=== PATIENT | male | born 1930 | race Caucasian/White ===

== ENCOUNTER 2017-06-07 18:18 | Emergency (ER) | payer OTHER ==
[~2017-06-07] VITALS: Ht 165.1 cm; Wt 50.0 kg
[~2017-06-07 18:18] MED LIST: HUM100IN4 SQ
[2017-06-07] MEDS ORDERED: morphine 4 MG/ML VIAL IV STA (18:27)
[2017-06-07] MEDS ORDERED: ONDANSETRON 4 MG INJ IV STA (18:27)
[2017-06-07] MEDS ORDERED: SOD CHLORIDE 0.9% 1,000 ML IV STA (18:27)
[2017-06-07 18:39] VITALS: Ht 165.1 cm; Wt 50.0 kg
[2017-06-07 19:13] LABS: BASOPHILS % 0.4 % (0.0-2.0); EOSINOPHILS % 0.4 % (0.0-7.0); LYMPHOCYTES # 0.9 10^3/ul (0.8-2.9); MEAN CORPUSCULAR HEMOGLOBIN 27.8 pg (29.0-33.0); MEAN CORPUSCULAR HGB CONC 31.6 g/dl (32.0-37.0); MEAN PLATELET VOLUME 9.2 fl (7.4-10.4); MONOCYTE # 0.6 10^3/ul (0.3-0.9); NEUTROPHIL # 6.5 10^3/ul (1.6-7.5); NEUTROPHILS % 80.8 % (39.0-77.0); PLATELET COUNT 256 10^3/UL (140-415); RED BLOOD COUNT 4.32 10^6/ul (4.70-6.10); RED CELL DISTRIBUTION WIDTH 15.1 % (11.5-14.5)
--- NOTE | 2017-06-07 19:23 | RADRPT ---
PROCEDURE: XR Chest. CLINICAL INDICATION: Abdominal pain. TECHNIQUE: Single frontal view. COMPARISON: . FINDINGS: There is mild atelectasis at the lung bases. The lungs are otherwise clear. The heart size is normal. There is calcification in the aorta consistent with atherosclerosis. There are new sternal wires. There are small bilateral pleural effusions. There is no pneumothorax. IMPRESSION: 1. Mild atelectasis at the lung bases. 2. Atherosclerosis. 3. New sternal wires. 4. Small bilateral pleural effusions. RPTAT: QQ .Daniel Noriega MD, Date Time Electronically viewed and signed by .Daniel Noriega MD, on 06/07/2017 19:22 .R/
[2017-06-07 19:35] LABS: ALANINE AMINOTRANSFERASE 31 IU/L (13-69); ALBUMIN 3.6 g/dl (3.3-4.9); ALKALINE PHOSPHATASE 138 IU/L (42-121); ANION GAP 13 (8-16); ASPARTATE AMINO TRANSFERASE 22 IU/L (15-46); BILIRUBIN,INDIRECT 0.5 mg/dl (0-1.1); BILIRUBIN,TOTAL 0.5 mg/dl (0.2-1.3); BLOOD UREA NITROGEN 13 mg/dl (7-20); CALCIUM 9.5 mg/dl (8.4-10.2); CARBON DIOXIDE 28 mmol/L (21-31); CHLORIDE 95 mmol/L (97-110); CREATININE 0.78 mg/dl (0.61-1.24); GLUCOSE 100 mg/dl (70-220); POTASSIUM 4.4 mmol/L (3.5-5.1); SODIUM 132 mmol/L (135-144); TOTAL PROTEIN 7.2 g/dl (6.1-8.1)
[2017-06-07 19:46] LABS: TROPONIN-I < 0.012 ng/ml (0.00-0.12)
[2017-06-07] MEDS ORDERED: HYDR2TAB3 PO (20:00)
[2017-06-07] MEDS ORDERED: FAMO20TA18 PO (20:00)
[2017-06-07] MEDS ORDERED: ONDA4TAB95 PO (20:01)
[2017-06-07] MEDS ORDERED: LACT10SO5 PO (20:02)
[2017-06-07] MEDS ORDERED: ATOR40TA68 PO (20:02)
[2017-06-07 20:29] LABS: INR 1.04; PARTIAL THROMBOPLASTIN TIME 30.9 Sec (25.0-35.0); PROTIME 13.6 Sec (12.2-14.2); PT RATIO 1.1
--- NOTE | 2017-06-07 20:35 | RADRPT ---
PROCEDURE: CT Abdomen and Pelvis without contrast. CLINICAL INDICATION: Abdominal pain TECHNIQUE: CT scan of the abdomen and pelvis without contrast was performed on a multidetector hig h-resolution CT scanner. The patient was scanned without intravenous contrast. Coronal and sagittal reformatted images were obtained from the axial source images. Images were reviewed on a high-resol [employer] PACS workstation. The total exam CTDI equals 8.81 mGy and the total exam DLP equals 455.83 mGy -cm. One or more the following dose reduction techniques were utilized: Automated exposure control, adjus tment of the mA and / or kV according to patient's size, or use of iterative reconstruction techniqu e. COMPARISON: None. FINDINGS: Small to moderate right pleural effusion with right lower lobe partial atelectasis. Small partially loculated left hydropneumothorax with left lower lobe and lingular partial atelectasis. No pneumoper itoneum is seen. Calcification in thoracoabdominal aorta. Small amount of ascites. Minimal calcifica tion at dome of liver could be vascular. No abnormality the gallbladder is seen. No biliary dilatati on is seen. Calcification in hepatic, splenic, bilateral renal and bilateral iliac arteries as well as inferior mesenteric artery. No abdominal aortic aneurysm is seen. Minimal thin linear peripheral splenic calcification. Arterial calcification in splenic hilar region. Arterial calcification in autumn ateral renal hilar regions. 6 mm likely hyperattenuating cyst in the mid right kidney. No imaging fo llow-up of this is recommended. No abnormality of the pancreas or adrenals is seen. Mild to moderat e enlargement of prostate with impression on posterior inferior bladder. Femoral arterial calcification is seen. Moderate stool in rectum. Appearance of mild diffuse rectal wall thickening w hich may be secondary to chronic constipation. There is no evidence of acute appendicitis seen. No d ilated small bowel loops are seen. No enlarged lymph nodes are seen in the abdomen or pelvis. Sterna l wires. Degenerative changes in thoracolumbar spine, sacroiliac joints and hips. 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 IMPRESSION: Small to moderate right pleural effusion with right lower lobe partial atelectasis. Small partially loculated left hydropneumothorax with left lower lobe and lingular partial atelectasis. The pneumoth orax is estimated be approximately 15%. Atherosclerosis. Very small amount of ascites. Mild to moder ate enlargement of prostate with impression on posterior inferior bladder. Moderate stool in the rec maria elena. Mild diffuse rectal wall thickening which may be secondary to chronic constipation. Critical re sult discussed with Dr. Garcia at 08:32 p.m. on 06/07/2017. RPTAT: HJES .Arnulfo Rosenthal MD, MD Date Time Electronically viewed and signed by .Arnulfo Rosenthal MD, on 06/07/2017 20:35 .S/
--- NOTE | 2017-06-07 22:39 | ERA ---
ER Documentation Chief Complaint Date/Time DATE: 06/07/17 TIME: 22:37 Chief Complaint c/o abd pain x months. [facility] pt. HPI Patient is a 87-year-old male who presents with abdominal pain and vomiting. The patient was brought in by ambulance. He has a history of abdominal pain over the past few months since November 2016. The pain is been constant. He denies vomiting or diarrhea at this time. He denies fevers. He tried pain pills. He is very emaciated. His primary doctor is at [facility]. Upon review of old medical records the patient one previous visit to the ER in June 2015. ROS All systems reviewed and are negative except as per history of present illness. Medications Home Meds Reported Medications Atorvastatin* (Atorvastatin*) 40 Mg Tablet, 40 MG PO QHS, #30 TAB 06/07/17 Lactulose* (Lactulose*) 10 Gm/15 Ml Solution, 30 ML PO BID for NEEDED, ML 06/07/17 Ondansetron Hcl* (Ondansetron Hcl*) 4 Mg Tablet, 4 MG PO Q6H Y for NAUSEA AND/ OR VOMITING, TAB 06/07/17 Hydromorphone Hcl* (Hydromorphone Hcl*) 2 Mg Tablet, 2 MG PO Q4H Y for PAIN, TAB 06/07/17 Famotidine* (Famotidine*) 20 Mg Tablet, 20 MG PO BID, #60 TAB 06/07/17 Hum Insulin NPH/Reg Insulin Hm (Humulin 70/30 Kwikpen) 100 Unit/1 Ml Insuln.pen , 6 UNIT SQ QAM 07/19/15 Allergies Allergies: Coded Allergies: No Known Allergy (Unverified , 06/07/17) PMhx/Soc Medical and Surgical Hx: Unable to obtain History of Surgery: Yes (NECK, BACK, LEFT LEG SURGERIES) Anesthesia Reaction: No Hx Neurological Disorder: No Hx Respiratory Disorders: No Hx Cardiac Disorders: Yes (HTN) Hx Psychiatric Problems: No Hx Miscellaneous Medical Probl: No Hx Alcohol Use: No Hx Substance Use: No Hx Tobacco Use: No Smoking Status: Never smoker FmHx Family History: diabetes Physical Exam Vitals Vital Signs Date Time Temp Pulse Resp B/P Pulse Ox O2 Delivery O2 Flow Rate FiO2 06/07/17 21:19 97.9 89 18 139/79 100 Nasal Cannula 3.0 06/07/17 20:45 Nasal Cannula 2 06/07/17 20:00 97.9 86 18 128/62 98 Room Air 06/07/17 18:39 98.1 73 20 130/69 97 Physical Exam Const: Emaciated and cachectic Head: Atraumatic Eyes: Normal Conjunctiva ENT: Normal External Ears, Nose and Mouth. Neck: Full range of motion..~ No meningismus. Resp: Clear to auscultation bilaterally Cardio: Regular rate and rhythm, no murmurs Abd: Soft, Diffuse abdominal pain with guarding Skin: No petechiae or rashes Back: No midline or flank tenderness Ext: No cyanosis, or edema Neur: Awake and alert Psych: Normal Mood and Affect Result Diagram: 06/07/17189906/07/171899 Results 24 hrs Laboratory Tests Test 06/07/17 19:00 06/07/17 19:45 White Blood Count 8.010^3/ul Red Blood Count 4.3210^6/ul Hemoglobin 12.0g/dl Hematocrit 38.0% Mean Corpuscular Volume 88.0fl Mean Corpuscular Hemoglobin 27.8pg Mean Corpuscular Hemoglobin Concent 31.6g/dl Red Cell Distribution Width 15.1% Platelet Count 90268^3/UL Mean Platelet Volume 9.2fl Neutrophils % 80.8% Lymphocytes % 11.0% Monocytes % 7.0% Eosinophils % 0.4% Basophils % 0.4% Nucleated Red Blood Cells % 0.0/100WBC Neutrophils # 6.510^3/ul Lymphocytes # 0.910^3/ul Monocytes # 0.610^3/ul Eosinophils # 0.010^3/ul Basophils # 0.010^3/ul Nucleated Red Blood Cells # 0.010^3/ul Sodium Level 132mmol/L Potassium Level 4.4mmol/L Chloride Level 95mmol/L Carbon Dioxide Level 28mmol/L Anion Gap 13 Blood Urea Nitrogen 13mg/dl Creatinine 0.78mg/dl Glucose Level 100mg/dl Calcium Level 9.5mg/dl Total Bilirubin 0.5mg/dl Direct Bilirubin 0.00mg/dl Indirect Bilirubin 0.5mg/dl Aspartate Amino Transf (AST/SGOT) 22IU/L Alanine Aminotransferase (ALT/SGPT) 31IU/L Alkaline Phosphatase 138IU/L Troponin I < 0.012ng/ml Total Protein 7.2g/dl Albumin 3.6g/dl Globulin 3.60g/dl Albumin/Globulin Ratio 1.00 Lipase 263U/L Prothrombin Time 13.6Sec Prothrombin Time Ratio 1.1 INR International Normalized Ratio 1.04 Activated Partial Thromboplast Time 30.9Sec Current Medications Medications (Trade) Dose Ordered Sig/Lindy Route PRN Reason Start Time Stop Time Status Last Admin Dose Admin Sodium Chloride (NS) 1,000 ml @ 1,000 mls/hr Q1H STAT IV 06/07/17 18:27 06/07/17 19:26 DC 06/07/17 18:55 Morphine Sulfate (morphine) 4 mg ONCE STAT IV 06/07/17 18:27 06/07/17 18:28 DC 06/07/17 18:55 Ondansetron HCl (Zofran Inj) 4 mg ONCE STAT IV 06/07/17 18:27 06/07/17 18:28 DC 06/07/17 18:55 Procedures/MDM CT abdomen pelvis shows hydropneumothorax of the left approximately 15% per radiology. Patient is a 87-year-old male who presents with abdominal pain. The patient will need transfer for fluid hydration and pain control. He was found to have a small hydropneumothorax of 15% on CT scan. The patient has [facility] insurance will be transferred with the accepting doctor of Dr. Zamarripa from [facility]. The patient will need further workup as well. At this point I doubt appendicitis, cholecystitis, pancreatitis, or bowel obstruction. Departure Diagnosis: Primary Impression: Pneumothorax Qualified Code: J93.9 - Pneumothorax, unspecified type Additional Impression: Abdominal pain Qualified Code: R10.84 - Generalized abdominal pain Condition: RUTHANN Constantino MD Jun 07, 2017 22:39
[2017-06-07 22:41] VITALS: BP 146/71; PULSE 90; RESP 18; TEMP 97.9
== END 2017-06-07 23:14 | disposition short-term general hospital (02) ==
LOC: E/R 18:18
DX: J93.9 Pneumothorax, unspecified (principal); R10.84 Generalized abdominal pain; I10 Essential (primary) hypertension
CPT/HCPCS: 36415; 71010; 74176; 80053; 83690; 84484; 85025; 85610; 85730; 93005; 96374; 96375; 99285; J2270; J2405; J7030